=== PATIENT | female | born 2000 | race Caucasian/White ===

== ENCOUNTER 2022-06-21 09:09 | Outpatient (CLI) | payer BC, SELFPAY ==
[2022-06-21 13:39] LABS: C Reactive Protein* < 0.5 mg/dL (0.5-1.0)
== END 2022-06-21 09:10 | disposition home or self-care (01) ==
LOC: LKVREF 09:09
PROVIDERS: PCP Emergency Medicine; Visit Provider Emergency Medicine
DX: R59.0 Localized enlarged lymph nodes (principal)
CPT/HCPCS: 86140

== ENCOUNTER 2022-07-12 09:01 | Outpatient (CLI) | payer BC, SELFPAY ==
--- NOTE | 2022-07-12 09:15 | CRLHL7_ITS ---
For Patients: As a result of the Century Cures Act, medical imaging exams and procedure reports are released immediately into your electronic medical record. You may view this report before your referring provider. If you have questions, please contact your health care provider. Indication: PALPABLE AREA POST TRAUMA Technique: Grayscale ultrasound of the left anterior hip soft tissues performed. Comparison: None Findings: Normal subcutaneous tissues. No fluid collection or mass. No adenopathy. No evidence of lipoma. No hernia. Impression: Negative sonogram of the left anterior hip soft tissues. Dictated by Jordan Brian MD @ 07/12/2022 10:08:23 AM (Electronically Signed)
== END 2022-07-12 09:02 | disposition home or self-care (01) ==
LOC: US 09:02
PROVIDERS: PCP Emergency Medicine; Visit Provider Surgery
DX: R22.42 Localized swelling, mass and lump, left lower limb (principal)
CPT/HCPCS: 76882